=== PATIENT | male | born 2000 | race Caucasian/White ===

== ENCOUNTER → 2023-12-14 | Outpatient (CLI) | payer OTHER ==
--- NOTE | 2023-12-14 13:20 | CA ---
Stress Echo Report Sarbjit Alicia Age: 23 Gender: M : 2000 Exam Date: 12/14/2023 10:12 Exam Location: [facility] Ht (in): 71 Wt (lb): 150 Ordering Physician: Natanael Camarillo MD Referring Physician: Natanael Camarillo MD Leather Seasoner: Mireille Tam RDCS Technologist Procedure CPT: Indication: R94.31 abnormal ELG ICD-9 Codes: Rhythm: Patient History: PALP SMOKES MARIJUANA Cardiac Medications: NONE Medications in past 24 hours: Contrast: N/A Stress Results Protocol: Nabeel Total dose(mL): Exercise Duration (min:sec): 12:[address] Depression (mm): Angina Score: Page Score: METS: 12.1 Resting HR: 64 Resting BP: 110 / 76 Peak HR: 173 Peak BP: 176 / 91 Max Predicted HR: 196 88 % Max Predicted HR Target HR: 167 Double Product: [id number] Stress Summary: BP Response: Reason for Termination: Reached target heart rate or work-load, Maximal effort/unable to continue Cardiac Symptoms: Test terminated after reaching target heart rate (85% max predicted) ECG Analysis Resting ECG: Stress ECG: Arrhythmia: Echo Analysis Resting Echo: Peak Echo Analysis: MEASUREMENTS (Male/Female) Normal Values CONCLUSIONS Baseline EKG shows sinus mechanism inverted P waves in the inferior leads and ST elevation in inferior leads as well as leads V3-V6 Patient exercised on a Nabeel protocol for more than 12 minutes achieving a peak heart rate 173 beats a minute and a normal blood pressure response No ECG as for ischemia no echocardiographic evidence for ischemia Impression Normal exercise stress echo Dr. Roman Swanson MD (Electronically Signed) Final Date: 14 December 2023 13:19
== END | disposition home or self-care (01) ==
LOC: RADNMMAIN 09:52
PROVIDERS: ATTEND Family Medicine
DX: R94.31 Abnormal electrocardiogram [ECG] [EKG] (principal)
CPT/HCPCS: 93351